=== PATIENT | female | born 1960 | race Caucasian/White ===

== ENCOUNTER 2021-06-27 14:35 | Emergency (ER) | payer BC, OTHER ==
[~2021-06-27] VITALS: Ht 167.6 cm; Wt 101.6 kg
[2021-06-27] MEDS ORDERED: ETOMIDATE (2MG/ML) 20ML VIAL IV ONE (15:15)
[2021-06-27 16:21] VITALS: BP 167/78
[2021-06-27] MEDS ORDERED: HYDR-4902 PO (16:27)
== END 2021-06-27 17:35 | disposition home or self-care (01) ==
LOC: ER 14:35 → EDBD 14:35 → ER 17:35
DX: S43.005A Unspecified dislocation of left shoulder joint, initial encounter (principal); W01.0XXA Fall on same level from slipping, tripping and stumbling without subsequent striking against object, initial encounter; Y93.89 Activity, other specified; Y92.89 Other specified places as the place of occurrence of the external cause; Y99.8 Other external cause status
CPT/HCPCS: 23650; 73030